=== PATIENT | female | born 2000 | race Caucasian/White ===

== ENCOUNTER 2022-03-23 18:23 | Emergency (ER) | payer BC, SELFPAY ==
[2022-03-23] MEDS ORDERED: Ibuprofen 200 MG TAB ONE ×2 (19:33→19:37)
[2022-03-23 19:45] LABS: #Monocytes 0.7 10x3/uL (0.0-1.1); #Neutrophils 3.7 10x3/uL (1.5-8.4); %Basophils 0.3 % (0.0-2.0); %Eosinophils 0.7 % (0.0-6.0); %Lymphocytes 24.6 % (18.0-47.0); %Monocytes 11.5 % (0.0-10.0); %Neutrophils 62.4 % (40.0-75.0); Hemoglobin 13.6 g/dL (12.0-15.5); Mean Corpuscular HGB CONC 33.9 g/dL (32.0-36.0); Mean Corpuscular Hemoglobin 28.6 pg (27.0-33.0); Mean Corpuscular Volume 84.2 fl (81.6-98.3); Mean Platelet Volume 9.4 fl (7.4-10.4); Platelet Count 251 10x3/uL (150-450); RBC Distribution Width 11.8 % (11.5-14.5); Red Blood Cell (RBC) Count 4.76 10x6/uL (3.90-5.03); White Blood Cell (WBC) Count 5.9 10x3/uL (3.5-10.5)
[2022-03-23 19:53] LABS: ALT (SGPT) 10 U/L (8-55); AST (SGOT) 17 U/L (5-34); Albumin 4.5 g/dL (3.5-5.0); Alkaline Phosphatase 52 U/L (40-100); Anion Gap 15 mmol/L (10-20); BUN (Urea Nitrogen) 10 mg/dL (7.0-18.7); Bilirubin, Total 0.5 mg/dL (0.2-1.2); Calc. Creatinine Clearance 0 mL/min (70-130); Calcium 9.7 mg/dL (7.8-10.44); Carbon Dioxide 23 mmol/L (22-29); Chloride 104 mmol/L (98-107); Globulin 2.8 g/dL (2.4-3.5); Glucose 83 mg/dL (70-105); Potassium 3.7 mmol/L (3.5-5.1); Protein, Total 7.3 g/dL (6.0-8.3); Sodium 138 mmol/L (136-145)
== END 2022-03-23 20:35 | disposition home or self-care (01) ==
LOC: CSHERS 18:23
DX: R10.30 Lower abdominal pain, unspecified (principal); R10.13 Epigastric pain
CPT/HCPCS: 36415; 76856; 80053; 83605; 85025